=== PATIENT | female | born 1985 | race Caucasian/White ===

== ENCOUNTER 2021-12-23 21:16 | Emergency (ER) | payer MEDICAID ==
[2021-12-23 22:36] LABS: BASOPHIL 1.1 % (0-2); EOSINOPHIL 0 % (0-5); HCT 41.9 % (37.0-47.0); MCH 31.1 pg (25.0-31.0); MCHC 35.8 g/dL (32.0-36.0); MCV 86.9 fL (78.0-100.0); MONOCYTE 4.4 % (0-12); MPV 12.1 fL (6.0-9.5); NEUTROPHIL 81.3 % (41-80); NRBC 0; PLT 130 K/uL (150-400); RBC 4.82 M/uL (4.20-5.40); WBC 2.7 K/uL (4.0-10.5)
[2021-12-23 22:37] LABS: LYMPHOCYTE 12.5 % (15-48)
[2021-12-23 22:38] LABS: BILIRUBIN 1+ mg/dL (NEGATIVE); BLOOD TRACE-INTACT Ery/uL (NEGATIVE); CLARITY CLEAR (CLEAR); COLOR YELLOW (YELLOW); GLUCOSE (U) NORMAL (NORMAL); LEUKOCYTES NEGATIVE Leu/uL (NEGATIVE); NITRITE NEGATIVE (NEGATIVE); PROTEIN 2+ mg/dL (NEGATIVE); SPECIFIC GRAVITY 1.025 (1.001-1.030); pH 6.5 (5.0-9.0)
[2021-12-23 22:58] LABS: ALBUMIN 3.9 g/dL (3.4-5.0); BILIRUBIN - TOTAL 0.5 mg/dL (0.2-1.0); BUN/CREAT RATIO (CALC) 12.9 RATIO; CREATININE 0.85 mg/dL (0.51-0.95); GLOBULIN (CALCULATION) 3.5 g/dL; TOTAL PROTEIN 7.4 g/dL (6.4-8.2)
[2021-12-23 23:06] LABS: CALCIUM OXALATE CRYSTALS MODERATE
[2021-12-23 23:08] LABS: BACTERIA 2+
[2021-12-23 23:21] LABS: INFLUENZA A NAA NEGATIVE (NEGATIVE)
[2021-12-23 23:41] LABS: CORONAVIRUS 2019 SARS-COV-2 POSITIVE (NEGATIVE)
[2021-12-23] MEDS ORDERED: KEFLEX250 MG PO (23:57)
[2021-12-23] MEDS ORDERED: ONDANSETRON ODT4 MG PO (23:57)
[2021-12-23] MEDS ORDERED: PAXLOVID CO-PA1 EAC1 PO (23:57)
== END 2021-12-24 00:08 | disposition home or self-care (01) ==
LOC: FER 21:16
PROVIDERS: Physician Assistant
DX: U07.1 COVID-19 (principal); N39.0 Urinary tract infection, site not specified; F17.210 Nicotine dependence, cigarettes, uncomplicated; Z91.018 Allergy to other foods
CPT/HCPCS: 36415; 80053; 81001; 83605; 85025; 87040; 87088; J0696; J1885; J2405; J2930; J7030; U0002